=== PATIENT | male | born 1950 | race Caucasian/White ===

== ENCOUNTER 2022-06-10 23:03 | Inpatient (IN) ==
[2022-06-10] MEDS ORDERED: MORPHINE 2 MG/1 ML SYRINGE IV ONE (23:21)
[2022-06-10] MEDS ORDERED: ONDANSETRON 4 MG/2 ML VIAL IV ONE (23:21)
[2022-06-10] MEDS ORDERED: SODIUM CHLORIDE 0.9% 1,000 ML IV STA (23:21)
[2022-06-10 23:36] LABS: Basophils # 0.1 10*3/uL (0.0-0.2); Eosinophils # 0.3 10*3/uL (0.0-0.87); Eosinophils % 2.9 % (0.00-10.9); Hematocrit 38.7 VOL% (42.0-52.0); Hemoglobin 13.2 GM/DL (14.0-18.0); Immature Granulocytes % 0.3 %; Immature Granulocytes Absolute 0.03 #; Lymphocytes # 1.9 10*3/uL (1.4-4.0); Lymphocytes % 16.4 % (21.2-54.2); Mean Corpuscular HGB Conc 34.1 GM/DL (32-36); Mean Corpuscular Volume 89.4 FL (87-102); Mean Platelet Volume 8.9 FL (9.6-12.0); Monocytes % 8.8 % (1.7-12.7); Neutrophils % 70.6 % (38.7-73.9); Platelet Count 289 T/CUMM (130-400); Red Blood Count 4.33 MC/CUMM (3.8-5.5); Red Cell Distribution Width 12.8 % (9.3-17.3); White Blood Count 11.54 T/CUMM (4-12)
[2022-06-10 23:46] LABS: INR 0.9; PT Patient Result 10.4 SECS (10.1-12.1)
[2022-06-11 00:14] LABS: Albumin 4.2 G/DL (3.4-5.0); Bilirubin,Total 0.4 MG/DL (0.20-1.00); Calcium 8.9 MG/DL (8.5-10.1); Osmolality,Calculated 258.2 MOS/KG (273-304); Potassium 4.2 MMOL/L (3.5-5.1); Total Protein 7.1 G/DL (6.4-8.2)
[2022-06-11] MEDS ORDERED: cefTRIAXone 1,000 MG in SODIUM CHLORIDE 0.9% 100 ML IV STA (00:56)
[2022-06-11] MEDS ORDERED: ONDANSETRON 4 MG/2 ML VIAL IV PRN (01:38)
[2022-06-11] MEDS ORDERED: ZALEPLON 5 MG CAPSULE PO PRN (01:53)
[2022-06-11 02:01] LABS: RBC,Urine 16069 /HPF (0-4); Urine Appearance Turbid (Clear)
[2022-06-11 02:02] LABS: Bilirubin,Urine Negative (Negative); Blood, Urine Large mg/dL (Negative); Glucose,Urine (UA) Negative (Negative); Ketones,Urine Negative (Negative); Nitrite,Urine Negative (Negative); Protein,Urine >=300 mg/dL (Negative); Urine Specific Gravity 1.025 (1.001-1.035); Urine Urobilinogen 0.2 eU/dL (<2.0)
[2022-06-11 02:03] LABS: Urine Color Red (Yellow)
[2022-06-11] MEDS: SODIUM CHLORIDE 0.9% 1,000 ML IV SCH ×2 (02:45→14:11)
[2022-06-11 05:36] LABS: Basophils # 0.1 10*3/uL (0.0-0.2); Eosinophils # 0.4 10*3/uL (0.0-0.87); Eosinophils % 4.3 % (0.00-10.9); Hematocrit 36.1 VOL% (42.0-52.0); Immature Granulocytes % 0.3 %; Immature Granulocytes Absolute 0.03 #; Lymphocytes # 2.1 10*3/uL (1.4-4.0); Mean Corpuscular HGB Conc 33.2 GM/DL (32-36); Mean Corpuscular Volume 90.7 FL (87-102); Mean Platelet Volume 9.2 FL (9.6-12.0); Monocytes # 0.8 10*3/uL (0.11-0.8); Monocytes % 8.6 % (1.7-12.7); Neutrophils % 62.8 % (38.7-73.9); Platelet Count 275 T/CUMM (130-400); Red Blood Count 3.98 MC/CUMM (3.8-5.5); Red Cell Distribution Width 13.1 % (9.3-17.3)
[2022-06-11 05:58] LABS: Albumin 3.5 G/DL (3.4-5.0); Bilirubin,Total 0.4 MG/DL (0.20-1.00); Calcium 8.6 MG/DL (8.5-10.1); Osmolality,Calculated 267.4 MOS/KG (273-304); Potassium 4.3 MMOL/L (3.5-5.1); Total Protein 6.4 G/DL (6.4-8.2)
[2022-06-11] MEDS: LEVOTHYROXINE 50 MCG TABLET PO SCH (07:37)
[2022-06-11] MEDS ORDERED: BENAZEPRIL HYDROCHLOROTHIAZIDE PO SCH (09:00)
[2022-06-11] MEDS ORDERED: cefTRIAXone 1,000 MG in SODIUM CHLORIDE 0.9% 100 ML IV ONE (09:02)
[2022-06-11] MEDS ORDERED: fentaNYL 100 MCG/2 ML VIAL ONE (09:39)
[2022-06-11] MEDS ORDERED: ONDANSETRON 4 MG/2 ML VIAL ONE (09:39)
[2022-06-11] MEDS ORDERED: propofoL 200 MG/20 ML VIAL IV ONE (09:39)
[2022-06-11] MEDS ORDERED: LIDOCAINE 2% 5 ML VIAL ONE (09:39)
[2022-06-11] MEDS ORDERED: FAMOTIDINE 20 MG/2 ML VIAL IV ONE ×2 (09:49→09:53)
[2022-06-11] MEDS ORDERED: NEOMYCIN/POLYMYXIN IRRIG SOLN 1 ML AMP BLADDERIRR ONE (10:24)
[2022-06-11] MEDS ORDERED: LACTATED RINGERS 2,000 ML IV ONE (11:40)
[2022-06-11] MEDS ORDERED: SEVOFLURANE 1 UNIT/15 MINUTE INH ONE (11:40)
[2022-06-11] MEDS ORDERED: LACTULOSE 20 GM/30 ML UDCUP PO PRN (11:58)
[2022-06-11] MEDS ORDERED: PROMETHAZINE 25 MG/1 ML VIAL IM PRN (11:58)
[2022-06-11] MEDS ORDERED: HYDROmorphone 1 MG/1 ML SYRINGE IV PRN (12:00)
[2022-06-11] MEDS ORDERED: oxyCODONE/ACETAMINOPHEN 5-325 MG TABLET PO PRN (12:01)
[2022-06-11] MEDS ORDERED: DEXAMETHASONE 4 MG/1 ML VIAL ONE (12:07)
[2022-06-11 12:19] LABS: Basophils # 0.1 10*3/uL (0.0-0.2); Basophils % 1.4 % (0.0-0.8); Eosinophils # 0.4 10*3/uL (0.0-0.87); Eosinophils % 4.6 % (0.00-10.9); Hemoglobin 12.2 GM/DL (14.0-18.0); Immature Granulocytes % 0.6 %; Immature Granulocytes Absolute 0.05 #; Lymphocytes # 1.7 10*3/uL (1.4-4.0); Lymphocytes % 21.7 % (21.2-54.2); Mean Corpuscular HGB Conc 33.9 GM/DL (32-36); Mean Corpuscular Volume 90.7 FL (87-102); Mean Platelet Volume 9.2 FL (9.6-12.0); Monocytes # 0.7 10*3/uL (0.11-0.8); Monocytes % 8.2 % (1.7-12.7); Neutrophils % 63.5 % (38.7-73.9); Platelet Count 256 T/CUMM (130-400); Red Blood Count 3.97 MC/CUMM (3.8-5.5); Red Cell Distribution Width 13.2 % (9.3-17.3); White Blood Count 7.89 T/CUMM (4-12)
[2022-06-11 12:34] LABS: Calcium 8.5 MG/DL (8.5-10.1); Potassium 4.3 MMOL/L (3.5-5.1)
[2022-06-11] MEDS: PANTOPRAZOLE 40 MG TABLET PO SCH (14:08)
[2022-06-11] MEDS: ENALAPRIL 20 MG TABLET PO SCH ×2 (14:08→14:53)
[2022-06-11] MEDS: SIMVASTATIN 10 MG TABLET PO SCH (14:08)
[2022-06-11] MEDS: OXYBUTYNIN 5 MG TABLET PO SCH ×2 (14:08→20:20)
[2022-06-11] MEDS: CHOLECALCIFEROL 1,000 UNIT TABLET PO SCH (14:09)
[2022-06-11] MEDS: ACETAMINOPHEN 325 MG TABLET PO SCH ×2 (14:10→19:00)
[2022-06-11] MEDS: FLUTICASONE 50 MCG NASAL SPRAY 16 GM BOTTLE BOTH NARES SCH (14:40)
[2022-06-11] MEDS: hydroCHLOROthiazide 12.5 MG CAPSULE PO SCH (14:49)
[2022-06-11] MEDS: amLODIPine 10 MG TABLET PO SCH (14:49)
[2022-06-11] MEDS ORDERED: ALFUZOSIN 10 MG TABLET PO SCH (19:00)
[2022-06-11] MEDS: DOCUSATE SODIUM 100 MG CAPSULE PO SCH (20:20)
[2022-06-12] MEDS: SODIUM CHLORIDE 0.9% 1,000 ML IV SCH ×2 (00:44→09:36)
[2022-06-12] MEDS ORDERED: cefTRIAXone 1,000 MG in SODIUM CHLORIDE 0.9% 100 ML IV SCH (02:00)
[2022-06-12 05:12] LABS: Basophils # 0.1 10*3/uL (0.0-0.2); Basophils % 0.6 % (0.0-0.8); Eosinophils # 0.1 10*3/uL (0.0-0.87); Eosinophils % 0.9 % (0.00-10.9); Hemoglobin 10.8 GM/DL (14.0-18.0); Immature Granulocytes % 0.4 %; Immature Granulocytes Absolute 0.04 #; Lymphocytes # 1.1 10*3/uL (1.4-4.0); Lymphocytes % 11.1 % (21.2-54.2); Mean Corpuscular HGB Conc 33.8 GM/DL (32-36); Mean Corpuscular Volume 90.4 FL (87-102); Mean Platelet Volume 9.6 FL (9.6-12.0); Monocytes # 0.6 10*3/uL (0.11-0.8); Platelet Count 251 T/CUMM (130-400); Red Blood Count 3.54 MC/CUMM (3.8-5.5); Red Cell Distribution Width 13.2 % (9.3-17.3); White Blood Count 9.97 T/CUMM (4-12)
[2022-06-12 05:34] LABS: Calcium 8.5 MG/DL (8.5-10.1); Osmolality,Calculated 275.8 MOS/KG (273-304); Potassium 3.6 MMOL/L (3.5-5.1)
[2022-06-12] MEDS: ACETAMINOPHEN 325 MG TABLET PO SCH ×2 (06:21)
[2022-06-12] MEDS: LEVOTHYROXINE 50 MCG TABLET PO SCH (06:21)
[2022-06-12 07:22] VITALS: BP 126/66
[2022-06-12] MEDS: OXYBUTYNIN 5 MG TABLET PO SCH (09:32)
[2022-06-12] MEDS: CHOLECALCIFEROL 1,000 UNIT TABLET PO SCH (09:32)
[2022-06-12] MEDS: DOCUSATE SODIUM 100 MG CAPSULE PO SCH (09:32)
[2022-06-12] MEDS: ENALAPRIL 20 MG TABLET PO SCH (09:32)
[2022-06-12] MEDS: SIMVASTATIN 10 MG TABLET PO SCH (09:32)
[2022-06-12] MEDS: PANTOPRAZOLE 40 MG TABLET PO SCH (09:32)
[2022-06-12] MEDS: hydroCHLOROthiazide 12.5 MG CAPSULE PO SCH (09:32)
[2022-06-12] MEDS: amLODIPine 10 MG TABLET PO SCH (09:33)
[2022-06-12] MEDS: FLUTICASONE 50 MCG NASAL SPRAY 16 GM BOTTLE BOTH NARES SCH (09:34)
== END 2022-06-12 11:16 | disposition home or self-care (01) | DRG 666 ==
LOC: N.ED 23:03 → N.EDINP 06-11 01:38 → N.3E 06-11 03:21
PROVIDERS: ADMIT Internal Medicine; ATTEND Internal Medicine